=== PATIENT | male | born 1955 | race Caucasian/White ===

== ENCOUNTER 2020-04-21 16:28 | Emergency (ER) | payer MEDICAID ==
[~2020-04-21] VITALS: Ht 172.7 cm; Wt 87.5 kg
--- NOTE | 2020-04-21 16:39 | NUR ---
RADIOLOGY AT BEDSIDE FOR CHEST XRAY.
--- NOTE | 2020-04-21 16:40 | NUR ---
PT BIBRA TO ER BED 01. PER REPORT, SYNCOPAL EPISODE WHILE AT A CLINIC. PT IS VERBALLY RESPONSIVE. PT STATES AFTER SCROTAL ULTRASOUND AND WAITING FOR HIM TO TALK TO MD HE "FAINTED" AND CANT REMEMBER WHAT HAPPEN. PT GOWNED AND PLACED ON MONITOR. VSS. AWAITING MD RANKIN.
[2020-04-21] MEDS: IV NS 0.9% 500 ML BAG IV ONE (16:47)
[2020-04-21 16:48] LABS: BASOPHILS % (AUTO) 0.5 % (0.0-2.0); HEMATOCRIT 43 % (39-51); HEMOGLOBIN 14.3 g/dL (13.5-17.5); LYMPHOCYTES # (AUTO) 1.9 /CMM (0.8-4.8); LYMPHOCYTES % (AUTO) 27.2 % (20.0-44.0); MEAN CORPUSCULAR HGB CONC 34 g/dl (31.0-36.0); MEAN CORPUSCULAR VOLUME 84 fL (80-96); MONOCYTES # (AUTO) 0.5 /CMM (0.1-1.30); MONOCYTES % (AUTO) 7.2 % (2.0-12.0); NEUTROPHILS % (AUTO) 59.1 % (43.0-81.0); PLATELET COUNT (AUTO) 264 /CMM (150-450); WHITE BLOOD COUNT (AUTO) 6.8 K/uL (4.3-11.0)
[2020-04-21 17:03] LABS: CARBON DIOXIDE 28 mmol/L (21-32); CHLORIDE 96 mmol/L (98-107); GLUCOSE 101 mg/dL (74-106); POTASSIUM 3.8 mmol/L (3.5-5.1); SODIUM SERUM 131 mmol/L (136-145); UREA NITROGEN, BLOOD 12 mg/dL (7-18)
[2020-04-21 17:09] LABS: ALANINE AMINOTRANSFERASE 29 U/L (12-78); ALKALINE PHOSPHATASE 81 U/L (46-116); ASPARTATE AMINOTRANSFERASE 19 U/L (15-37); BILIRUBIN,DIRECT 0.1 mg/dL (0.0-0.2); BILIRUBIN,TOTAL 0.3 mg/dL (0.2-1.0); TOTAL PROTEIN, SERUM 7.9 g/dL (6.4-8.2)
--- NOTE | 2020-04-21 17:29 | NUR ---
DR LAO AT BEDSIDE FOR EVAL.
--- NOTE | 2020-04-21 19:00 | NUR ---
pt ambulatory w/ steady gait. Patient discharged to home in stable condition. Written and verbal after care instructions given. Patient verbalizes understanding of instruction.IV removed. Catheter intact and site benign. Pressure and 4x4 applied to site. No bleeding noted.
[2020-04-21 19:01] VITALS: BP 158/96
== END 2020-04-21 19:02 | disposition home or self-care (01) ==
LOC: ER 16:31
DX: R55 Syncope and collapse (principal); G40.909 Epilepsy, unspecified, not intractable, without status epilepticus; R41.0 Disorientation, unspecified
CPT/HCPCS: 36415; 71045; 80048; 80076; 84484; 85025; 85730; 86850; 93005 ×2; 99285; J7040